=== PATIENT | female | born 1995 | race Hispanic/Latino ===

== ENCOUNTER 2018-12-26 08:31 | Emergency (ER) | payer MEDICAID, OTHER ==
[2018-12-26] MEDS ORDERED: IBUPROFEN 800 MG TAB ONE (09:23)
== END 2018-12-26 09:31 | disposition home or self-care (01) ==
LOC: EDH 08:31
DX: H66.012 Acute suppurative otitis media with spontaneous rupture of ear drum, left ear (principal)

== ENCOUNTER 2022-11-29 19:12 | Emergency (ER) | payer BC ==
[~2022-11-29] VITALS: Ht 162.6 cm; Wt 151.5 kg
[2022-11-29 23:04] VITALS: BP 156/91; PULSE 86; RESP 20; O2SAT 97
== END 2022-11-30 00:02 | disposition home or self-care (01) ==
LOC: EDH 19:12
DX: S93.402A Sprain of unspecified ligament of left ankle, initial encounter (principal); W01.0XXA Fall on same level from slipping, tripping and stumbling without subsequent striking against object, initial encounter; Y93.89 Activity, other specified; Y92.89 Other specified places as the place of occurrence of the external cause; Y99.8 Other external cause status
CPT/HCPCS: 73501; 73551; 73562; 73600